=== PATIENT | male | born 1995 | race Caucasian/White ===

== ENCOUNTER 2017-03-01 09:17 | Emergency (ER) | payer SELFPAY ==
[~2017-03-01] VITALS: Ht 172.7 cm; Wt 124.3 kg
[2017-03-01 09:27] VITALS: Ht 172.7 cm; Wt 124.3 kg
[2017-03-01 14:14] VITALS: BP 136/63
== END 2017-03-01 14:30 | disposition home or self-care (01) ==
LOC: ED 09:17
DX: R10.31 Right lower quadrant pain (principal); R11.10 Vomiting, unspecified; R19.7 Diarrhea, unspecified
CPT/HCPCS: J0500; Q0162

== ENCOUNTER 2017-11-28 08:57 | Emergency (ER) | payer SELFPAY ==
[2017-11-28 09:12] VITALS: Ht 172.7 cm
[2017-11-28 10:52] LABS: BASOPHIL % 0.4 % (0-2); PLATELET COUNT 274 x10^3mcL (130-400); RED CELL DISTRIBUTION WIDTH 12.7 % (11.5-14.5)
[2017-11-28 11:12] LABS: CARBON DIOXIDE 22.6 mmol/L (21-32); CHLORIDE SERUM 108 mmol/L (98-107); CREATININE SERUM 0.8 mg/dL (0.7-1.3); GFR1 > 60 mL/min; GLUCOSE SERUM 89 mg/dL (74-106); POTASSIUM SERUM 4.3 mmol/L (3.5-5.1); SODIUM SERUM 142 mmol/L (136-145)
[2017-11-28 11:16] LABS: ALBUMIN 4.1 g/dL (3.4-5.0); ALKALINE PHOSPHATASE 85 U/L (46-116); ALT/SGPT 28 U/L (16-63); AST/SGOT 11 U/L (15-37); BILIRUBIN TOTAL 1.07 mg/dL (0.20-1.00); LIPASE 132 IU/L (73-393); TOTAL PROTEIN, SERUM 7.9 g/dL (6.4-8.2)
[2017-11-28 12:13] VITALS: BP 129/70
== END 2017-11-28 12:13 | disposition home or self-care (01) ==
LOC: ED 08:57
PROVIDERS: Emergency Medicine
DX: K52.9 Noninfective gastroenteritis and colitis, unspecified (principal)
CPT/HCPCS: 36415